=== PATIENT | female | born 1980 | race Caucasian/White ===

== ENCOUNTER → 2016-11-12 | Outpatient (CLI) | payer BC ==
[~2016-11-12] MED LIST: ANTIBIOTIC PO; ASPI-1159 PO; CHOL400T15 PO; CO-Q 10 PO; LABE100T PO; METF10002 PO; PREN-88 PO; PROG200C7 VG
[2016-11-12 06:29] LABS: BASOPHILS % 0.8 % (0.0-2.0); EOSINOPHILS % 1.7 % (0.0-5.0); HEMATOCRIT. 37.9 % (36.0-48.0); HEMOGLOBIN. 12.9 g/dL (12.0-16.0); LYMPHOCYTES % 25.5 % (20.0-50.0); MEAN CORPUSCULAR HEMOGLOBIN 29.4 pg (28.0-32.0); MEAN CORPUSCULAR VOLUME 86.4 fL (81.0-99.0); MEAN PLATELET VOLUME 7.9 fl (7.4-10.4); MONOCYTES % 5.4 % (2.0-8.0); NEUTROPHILS % 66.6 % (40.0-76.0); PLATELET 302 x1000/uL (130-400); RED BLOOD CELL COUNT 4.38 mill/uL (4.2-5.4); RED CELL DISTRIBUTION WIDTH 13.7 % (11.6-14.6)
[2016-11-12 07:03] LABS: CARBON DIOXIDE 22 mEq/L (21-32); CHLORIDE 106 mEq/L (98-107)
[2016-11-12 07:28] LABS: VITAMIN B12 SERUM 433 pg/mL (211-911)
== END | disposition home or self-care (01) ==
LOC: LAB 06:09
PROVIDERS: ATTEND Internal Medicine Geriatric Medicine
DX: I10 Essential (primary) hypertension (principal); E11.65 Type 2 diabetes mellitus with hyperglycemia
CPT/HCPCS: 36415; 80053; 82607; 83036; 84443; 85025

== ENCOUNTER → 2016-12-17 | Outpatient (CLI) | payer BC | END | disposition home or self-care (01) | LOC: LAB 15:25 | PROVIDERS: ATTEND Internal Medicine Geriatric Medicine | DX: Z32.00 Encounter for pregnancy test, result unknown (principal) | CPT/HCPCS: 36415; 84702 ==

== ENCOUNTER → 2017-01-06 | Outpatient (CLI) | payer BC ==
[2017-01-06 07:27] LABS: GLUCOSE URINE NEGATIVE (NEGATIVE); KETONES URINE NEGATIVE (NEGATIVE); LEUKOCYTE ESTERASE URINE NEGATIVE (NEGATIVE); NITRITE URINE NEGATIVE (NEGATIVE); OCCULT BLOOD URINE NEGATIVE (NEGATIVE); PROTEIN URINE NEGATIVE (NEGATIVE); SPECIFIC GRAVITY URINE 1.028 (1.005-1.030); UROBILINOGEN URINE 0.2 E.U./dL (0.2-1.0)
[2017-01-06 07:28] LABS: BASOPHILS % 0.6 % (0.0-2.0); EOSINOPHILS % 1.3 % (0.0-5.0); HEMATOCRIT. 37.9 % (36.0-48.0); HEMOGLOBIN. 12.9 g/dL (12.0-16.0); LYMPHOCYTES % 21.8 % (20.0-50.0); MEAN CORPUSCULAR HEMOGLOBIN 30.4 pg (28.0-32.0); MEAN CORPUSCULAR VOLUME 89.1 fL (81.0-99.0); MEAN PLATELET VOLUME 7.9 fl (7.4-10.4); MONOCYTES % 4.8 % (2.0-8.0); NEUTROPHILS % 71.5 % (40.0-76.0); PLATELET 316 x1000/uL (130-400); RED BLOOD CELL COUNT 4.26 mill/uL (4.2-5.4); RED CELL DISTRIBUTION WIDTH 13.2 % (11.6-14.6)
[2017-01-06 07:30] LABS: CLARITY URINE CLEAR (CLEAR); COLOR URINE DARK YELLOW (YELLOW)
[2017-01-06 08:18] LABS: T4 FREE 0.98 ng/dL (0.76-1.46)
[2017-01-06 11:44] LABS: HEPATITIS B SURFACE ANTIGEN NEGATIVE; RUBELLA IGG 19.7 IU/mL (4.99-10)
[2017-01-08 13:11] LABS: HGB A 97.3 % (94.0-98.0); HGB A2 2.7 % (0.7-3.1); HGB SOLUBILITY Negative (Negative)
[2017-01-09 17:12] LABS: 25-HYDROXY VITAMIN D3 38 ng/mL (.)
== END | disposition home or self-care (01) ==
LOC: LAB 06:48
PROVIDERS: ATTEND Obstetrics & Gynecology Obstetrics
DX: O09.529 Supervision of elderly multigravida, unspecified trimester (principal); Z3A.00 Weeks of gestation of pregnancy not specified
CPT/HCPCS: 36415; 81003; 82306; 82947; 83021; 83036; 84439; 84443; 85025; 85660; 86592; 86762; 86850; 86900; 87086; 87186; 87340

== ENCOUNTER 2017-01-15 15:31 | Emergency (ER) | payer BC ==
[~2017-01-15] VITALS: Ht 154.9 cm; Wt 88.0 kg
[2017-01-15 17:39] LABS: CHLORIDE 105 mEq/L (98-107)
[2017-01-15 17:43] LABS: CARBON DIOXIDE 22 mEq/L (21-32)
[2017-01-15 17:56] LABS: BASOPHILS % 0.6 % (0.0-2.0); EOSINOPHILS % 1.2 % (0.0-5.0); HEMATOCRIT. 37.3 % (36.0-48.0); HEMOGLOBIN. 12.4 g/dL (12.0-16.0); LYMPHOCYTES % 24.4 % (20.0-50.0); MEAN CORPUSCULAR HEMOGLOBIN 29.6 pg (28.0-32.0); MEAN CORPUSCULAR VOLUME 88.7 fL (81.0-99.0); MEAN PLATELET VOLUME 8.2 fl (7.4-10.4); MONOCYTES % 6.5 % (2.0-8.0); NEUTROPHILS % 67.3 % (40.0-76.0); PLATELET 331 x1000/uL (130-400); RED BLOOD CELL COUNT 4.21 mill/uL (4.2-5.4); RED CELL DISTRIBUTION WIDTH 13.5 % (11.6-14.6)
[2017-01-15 18:03] LABS: B-HCG QUANTITATIVE 83756 mIU/mL (<3)
[2017-01-15 19:30] VITALS: BP 132/78
== END 2017-01-15 20:30 | disposition home or self-care (01) ==
LOC: ER 16:21
DX: O26.891 Other specified pregnancy related conditions, first trimester (principal); O16.2 Unspecified maternal hypertension, second trimester; O24.912 Unspecified diabetes mellitus in pregnancy, second trimester; N89.8 Other specified noninflammatory disorders of vagina; Z88.0 Allergy status to penicillin; Z79.82 Long term (current) use of aspirin; Z3A.08 8 weeks gestation of pregnancy
CPT/HCPCS: 36415; 76810; 76830; 80053; 84702; 85025; 86850; 86900; 99285

== ENCOUNTER → 2017-02-03 | Outpatient (CLI) | payer BC | END | disposition home or self-care (01) | LOC: LAB 13:32 | PROVIDERS: ATTEND Obstetrics & Gynecology Obstetrics | DX: Z34.81 Encounter for supervision of other normal pregnancy, first trimester (principal) | CPT/HCPCS: 36415 ==

== ENCOUNTER → 2017-02-14 | Outpatient (CLI) | payer BC | END | disposition home or self-care (01) | LOC: LAB 09:44 | PROVIDERS: ATTEND Obstetrics & Gynecology Obstetrics | DX: Z34.81 Encounter for supervision of other normal pregnancy, first trimester (principal) | CPT/HCPCS: 36415 ==

== ENCOUNTER 2017-02-26 05:37 | Inpatient (IN) | payer BC ==
[~2017-02-26] VITALS: Ht 154.9 cm; Wt 91.2 kg
[~2017-02-26 05:37] MED LIST changes: -ANTIBIOTIC PO; +CHOL20009 PO; -CHOL400T15 PO; +INSLIS SUBCUT; -METF10002 PO; +NPH,100V SQ
[2017-02-26] MEDS ORDERED: SODIUM CHLORIDE 0.9% 1,000 ML IV SCH (06:40)
[2017-02-26 06:55] LABS: BASOPHILS % 0.3 % (0.0-2.0); EOSINOPHILS % 0.9 % (0.0-5.0); HEMOGLOBIN. 12.6 g/dL (12.0-16.0); LYMPHOCYTES % 13.2 % (20.0-50.0); MEAN CORPUSCULAR HEMOGLOBIN 30.6 pg (28.0-32.0); MEAN CORPUSCULAR VOLUME 89.6 fL (81.0-99.0); MONOCYTES % 4.8 % (2.0-8.0); NEUTROPHILS % 80.8 % (40.0-76.0); PLATELET 251 x1000/uL (130-400); RED BLOOD CELL COUNT 4.14 mill/uL (4.2-5.4); RED CELL DISTRIBUTION WIDTH 13.5 % (11.6-14.6)
[2017-02-26] MEDS ORDERED: CITRIC ACID/SODIUM CITRATE SOLN 30ML UDC PO STA (06:55)
[2017-02-26 07:10] LABS: PARTIAL THROMBOPLASTIN TIME 25.6 sec (23.4-31.0); PROTHROMBIN TIME 10.4 sec (9.4-11.6)
[2017-02-26 07:27] LABS: CLARITY URINE CLEAR (CLEAR); COLOR URINE DARK YELLOW (YELLOW); KETONES URINE 1+ (NEGATIVE); LEUKOCYTE ESTERASE URINE 1+ (NEGATIVE); NITRITE URINE NEGATIVE (NEGATIVE); OCCULT BLOOD URINE NEGATIVE (NEGATIVE); PROTEIN URINE NEGATIVE (NEGATIVE); SPECIFIC GRAVITY URINE 1.032 (1.005-1.030); UROBILINOGEN URINE 0.2 E.U./dL (0.2-1.0)
[2017-02-26] MEDS ORDERED: ACETAMINOPHEN 325MG TABLET PO PRN (07:30)
[2017-02-26] MEDS ORDERED: ONDANSETRON HCL 4MG/2ML VIAL IV PRN (07:30)
[2017-02-26 07:50] LABS: CARBON DIOXIDE 21 mEq/L (21-32); CHLORIDE 106 mEq/L (98-107)
[2017-02-26] MEDS ORDERED: METRONIDAZOLE 0.75% TOP ONE (09:15)
[2017-02-26] MEDS ORDERED: HYDROCODONE/ACETAMINOPHEN 5/325MG TABLET PO PRN ×2 (09:30)
[2017-02-26 16:00] VITALS: BP 131/65
[2017-02-26] MEDS: PRENATAL VIT/FE FUMARATE/FA TABLET PO SCH (16:11)
[2017-02-26] MEDS: ASPIRIN 81MG EC TABLET PO SCH (16:11)
[2017-02-26] MEDS: CHOLECALCIFEROL (D3) 1000 UNIT TABLET PO SCH (16:11)
[2017-02-26] MEDS ORDERED: INSULIN GLARGINE UD 100 UNITS/ML SYR SUBCUT SCH (18:00)
[2017-02-26 20:00] VITALS: BP 112/69
[2017-02-26] MEDS: LABETALOL HCL 100MG TABLET PO SCH (21:31)
[2017-02-27] VITALS: BP 110/62
[2017-02-27 04:00] VITALS: BP 106/52
[2017-02-27 07:40] VITALS: BP 110/65
[2017-02-27] MEDS ORDERED: INSULIN GLARGINE UD 100 UNITS/ML SYR SUBCUT SCH (09:00)
[2017-02-27] MEDS: LABETALOL HCL 100MG TABLET PO SCH (09:05)
[2017-02-27] MEDS: CHOLECALCIFEROL (D3) 1000 UNIT TABLET PO SCH (09:05)
[2017-02-27] MEDS: PRENATAL VIT/FE FUMARATE/FA TABLET PO SCH (09:05)
[2017-02-27] MEDS: ASPIRIN 81MG EC TABLET PO SCH (09:05)
[2017-02-27 10:16] VITALS: BP 110/65
== END 2017-02-27 10:45 | disposition home or self-care (01) | DRG 782 ==
LOC: OR 05:37 → 8WST 05:38
PROVIDERS: ADMIT Obstetrics & Gynecology Obstetrics; ATTEND Obstetrics & Gynecology Obstetrics
PROC: 0UV Female Reproductive System, Restriction (ICD-10-PCS; principal; 2017-02-26 07:30)
DX: O34.32 Maternal care for cervical incompetence, second trimester (principal); O09.522 Supervision of elderly multigravida, second trimester; O30.032 Twin pregnancy, monochorionic/diamniotic, second trimester; Z3A.14 14 weeks gestation of pregnancy; Z82.49 Family history of ischemic heart disease and other diseases of the circulatory system; Z83.3 Family history of diabetes mellitus; Z88.0 Allergy status to penicillin
CPT/HCPCS: 36415; 80048; 81001; 82962; 85025; 85610; 85730; 86850; 86900; 93005; J1815; J7030

== ENCOUNTER → 2017-03-18 | Outpatient (CLI) | payer BC ==
[~2017-03-18] MED LIST changes: -PROG200C7 VG
== END | disposition home or self-care (01) ==
LOC: LAB 10:40
PROVIDERS: ATTEND Obstetrics & Gynecology Obstetrics
DX: O09.522 Supervision of elderly multigravida, second trimester (principal); O30.002 Twin pregnancy, unspecified number of placenta and unspecified number of amniotic sacs, second trimester; O24.912 Unspecified diabetes mellitus in pregnancy, second trimester; O16.2 Unspecified maternal hypertension, second trimester; Z3A.17 17 weeks gestation of pregnancy
CPT/HCPCS: 36415

== ENCOUNTER 2017-06-04 12:37 | Inpatient (IN) | payer BC ==
[~2017-06-04] VITALS: Ht 157.5 cm; Wt 100.7 kg
[2017-06-04] MEDS ORDERED: LACTATED RINGERS 1,000 ML IV SCH (12:49)
[2017-06-04] MEDS: LACTATED RINGERS 1,000 ML IV SCH ×2 (14:10→14:48)
[2017-06-04 14:25] LABS: CLARITY URINE CLEAR (CLEAR); COLOR URINE YELLOW (YELLOW); KETONES URINE TRACE (NEGATIVE); LEUKOCYTE ESTERASE URINE TRACE (NEGATIVE); NITRITE URINE NEGATIVE (NEGATIVE); OCCULT BLOOD URINE NEGATIVE (NEGATIVE); PH URINE 6.5 (4.5-8.0); PROTEIN URINE 1+ (NEGATIVE); SPECIFIC GRAVITY URINE 1.023 (1.005-1.030)
[2017-06-04 14:31] LABS: PARTIAL THROMBOPLASTIN TIME 25.2 sec (23.4-31.0); PROTHROMBIN TIME 10.3 sec (9.4-11.6)
[2017-06-04] MEDS: BETAMETHASONE ACET/BETAMET 30 MG/5 ML VIAL IM SCH (14:48)
[2017-06-04 14:54] LABS: *AMPHETAMINES SCREEN URINE NEGATIVE (NEGATIVE); *BARBITURATES SCREEN URINE NEGATIVE (NEGATIVE); *BENZODIAZEPINES SCREEN URINE NEGATIVE (NEGATIVE); *COCAINE SCREEN URINE NEGATIVE (NEGATIVE)
[2017-06-04 14:55] LABS: CANNABINOID URINE SCREEN NEGATIVE (NEGATIVE); METHADONE URINE SCREEN NEGATIVE (NEGATIVE); OPIATES URINE SCREEN NEGATIVE (NEGATIVE); PHENCYCLIDINE URINE SCREEN NEGATIVE (NEGATIVE)
[2017-06-04 15:06] LABS: RUBELLA IGG 31.9 IU/mL (4.99-10)
[2017-06-04 15:07] LABS: HEPATITIS B SURFACE ANTIGEN NEGATIVE
[2017-06-04 15:20] LABS: BASOPHILS % 0.2 % (0.0-2.0); EOSINOPHILS % 0.9 % (0.0-5.0); HEMATOCRIT. 33.5 % (36.0-48.0); HEMOGLOBIN. 11.6 g/dL (12.0-16.0); LYMPHOCYTES % 14.3 % (20.0-50.0); MEAN CORPUSCULAR HEMOGLOBIN 31.3 pg (28.0-32.0); MEAN CORPUSCULAR VOLUME 90.8 fL (81.0-99.0); MEAN PLATELET VOLUME 7.9 fl (7.4-10.4); MONOCYTES % 7.7 % (2.0-8.0); NEUTROPHILS % 76.9 % (40.0-76.0); PLATELET 246 x1000/uL (130-400); RED CELL DISTRIBUTION WIDTH 14.4 % (11.6-14.6)
[2017-06-04] MEDS ORDERED: CLINDAMYCIN 900 MG in DEXTROSE 5% WATER 50 ML IV SCH (19:00)
[2017-06-04] MEDS: MAGNESIUM 20 G PREMIX (L & D) 500 ML IV SCH (19:15)
[2017-06-04] MEDS: INSULIN LISPRO 100 UNITS/ML SUBCUT SCH (20:14)
[2017-06-04] MEDS: CLINDAMYCIN 900 MG in SODIUM CHLORIDE 0.9% 50 ML IV SCH (20:16)
[2017-06-04] MEDS ORDERED: AZITHROMYCIN IV NR (21:00)
[2017-06-04] MEDS ORDERED: LACTATED RINGERS IV NR (21:00)
[2017-06-04] MEDS: LABETALOL HCL 100MG TABLET PO SCH (21:21)
[2017-06-04] MEDS ORDERED: INSULIN REGULAR (HUMULIN R) 300UNITS/3ML SUBCUT SCH (22:45)
[2017-06-04] MEDS ORDERED: INSULIN LISPRO 100 UNITS/ML SUBCUT NR (22:57)
[2017-06-04] MEDS: INSULIN NPH (HUMULIN-N) 100 UNITS/ML 3ML VIAL SUBCUT SCH (23:05)
[2017-06-04] MEDS: GENTAMICIN SULFATE 140 MG in SODIUM CHLORIDE 0.9% 100 ML IV SCH (23:09)
[2017-06-05] MEDS: MAGNESIUM 20 G PREMIX (L & D) 500 ML IV SCH (02:32)
[2017-06-05] MEDS: CLINDAMYCIN 900 MG in SODIUM CHLORIDE 0.9% 50 ML IV SCH ×3 (04:15→21:20)
[2017-06-05] MEDS ORDERED: INSULIN LISPRO 100 UNITS/ML SUBCUT SCH (07:45)
[2017-06-05] MEDS: INSULIN NPH (HUMULIN-N) 100 UNITS/ML 3ML VIAL SUBCUT SCH ×2 (07:49→22:30)
[2017-06-05] MEDS: INSULIN LISPRO 100 UNITS/ML SUBCUT SCH ×2 (07:58→17:44)
[2017-06-05 08:02] LABS: BASOPHILS % 0.2 % (0.0-2.0); EOSINOPHILS % 0.1 % (0.0-5.0); HEMATOCRIT. 33.3 % (36.0-48.0); HEMOGLOBIN. 11.5 g/dL (12.0-16.0); LYMPHOCYTES % 10.9 % (20.0-50.0); MEAN CORPUSCULAR HEMOGLOBIN 31.6 pg (28.0-32.0); MEAN CORPUSCULAR VOLUME 91.1 fL (81.0-99.0); MEAN PLATELET VOLUME 7.8 fl (7.4-10.4); NEUTROPHILS % 82.8 % (40.0-76.0); PLATELET 240 x1000/uL (130-400); RED BLOOD CELL COUNT 3.65 mill/uL (4.2-5.4); RED CELL DISTRIBUTION WIDTH 14.4 % (11.6-14.6)
[2017-06-05 08:16] LABS: CHLORIDE 106 mEq/L (98-107)
[2017-06-05] MEDS ORDERED: PRENATAL VIT/FE FUMARATE/FA TABLET PO SCH (09:00)
[2017-06-05] MEDS: LABETALOL HCL 100MG TABLET PO SCH ×2 (09:00→22:39)
[2017-06-05] MEDS ORDERED: INSULIN LISPRO 100 UNITS/ML SUBCUT NR ×2 (11:45→21:15)
[2017-06-05] MEDS: LACTATED RINGERS 1,000 ML IV SCH (12:00)
[2017-06-05] MEDS: GENTAMICIN SULFATE 140 MG in SODIUM CHLORIDE 0.9% 100 ML IV SCH (14:39)
[2017-06-05] MEDS: BETAMETHASONE ACET/BETAMET 30 MG/5 ML VIAL IM SCH (15:30)
[2017-06-05] MEDS ORDERED: INSULIN LISPRO 100 UNITS/ML SUBCUT ONE (21:00)
[2017-06-05] MEDS ORDERED: INSULIN REGULAR (HUMULIN R) 300UNITS/3ML SUBCUT NR (22:30)
[2017-06-06] MEDS ORDERED: GENTAMICIN SULFATE 140 MG in SODIUM CHLORIDE 0.9% 100 ML IV SCH (03:00)
[2017-06-06] MEDS: CLINDAMYCIN 900 MG in SODIUM CHLORIDE 0.9% 50 ML IV SCH ×2 (05:47→12:35)
[2017-06-06] MEDS ORDERED: INSULIN REGULAR (HUMULIN R) 300UNITS/3ML SUBCUT ONE (07:45)
[2017-06-06] MEDS: INSULIN LISPRO 100 UNITS/ML SUBCUT SCH ×2 (08:03→18:27)
[2017-06-06] MEDS: INSULIN NPH (HUMULIN-N) 100 UNITS/ML 3ML VIAL SUBCUT SCH ×2 (08:11→22:24)
[2017-06-06 13:37] LABS: BASOPHILS % 0.1 % (0.0-2.0); EOSINOPHILS % 0.1 % (0.0-5.0); HEMATOCRIT. 30.6 % (36.0-48.0); HEMOGLOBIN. 10.4 g/dL (12.0-16.0); MEAN CORPUSCULAR HEMOGLOBIN 30.9 pg (28.0-32.0); MEAN CORPUSCULAR VOLUME 91.3 fL (81.0-99.0); MEAN PLATELET VOLUME 7.8 fl (7.4-10.4); MONOCYTES % 9.7 % (2.0-8.0); NEUTROPHILS % 75.1 % (40.0-76.0); PLATELET 220 x1000/uL (130-400); RED BLOOD CELL COUNT 3.35 mill/uL (4.2-5.4); RED CELL DISTRIBUTION WIDTH 14.3 % (11.6-14.6)
[2017-06-06] MEDS ORDERED: DEXTROSE 50% WATER 50ML SYRINGE IV PRN (18:30)
[2017-06-06] MEDS: LABETALOL HCL 100MG TABLET PO SCH (21:11)
[2017-06-06] MEDS: CLINDAMYCIN HCL 150MG CAPSULE PO SCH (21:12)
[2017-06-06] MEDS ORDERED: LIDOCAINE HCL 2% JELLY 5ML TOP NR (21:15)
[2017-06-06] MEDS: NITROFURANTOIN 100MG M/M CAPSULE PO SCH (22:14)
[2017-06-06] MEDS: LACTATED RINGERS 1,000 ML IV SCH (23:48)
[2017-06-07 00:22] LABS: CLARITY URINE CLEAR (CLEAR); COLOR URINE YELLOW (YELLOW); KETONES URINE NEGATIVE (NEGATIVE); LEUKOCYTE ESTERASE URINE NEGATIVE (NEGATIVE); NITRITE URINE NEGATIVE (NEGATIVE); OCCULT BLOOD URINE 2+ (NEGATIVE); PROTEIN URINE NEGATIVE (NEGATIVE); SPECIFIC GRAVITY URINE 1.015 (1.005-1.030); UROBILINOGEN URINE 0.2 E.U./dL (0.2-1.0)
[2017-06-07] MEDS: CLINDAMYCIN HCL 150MG CAPSULE PO SCH (05:12)
[2017-06-07] MEDS: BLOOD SUGAR DIAGNOSTIC STRIP TEST SCH ×4 (06:30→19:00)
[2017-06-07] MEDS: LACTATED RINGERS 1,000 ML IV SCH (06:45)
[2017-06-07] MEDS ORDERED: PHENAZOPYRIDINE HCL 100MG TABLET PO SCH (07:10)
[2017-06-07] MEDS ORDERED: CEFAZOLIN SODIUM 1000MG/VIAL ONE (08:03)
[2017-06-07] MEDS ORDERED: OXYTOCIN 10 UNITS/ML 1ML ONE (08:03)
[2017-06-07] MEDS ORDERED: KETOROLAC 60MG/2ML VIAL IM ONE (08:04)
[2017-06-07] MEDS ORDERED: ONDANSETRON HCL 4MG/2ML VIAL ONE (08:04)
[2017-06-07] MEDS ORDERED: MORPHINE SULFATE/PF 1MG/ML 10ML AMP ONE (08:07)
[2017-06-07] MEDS ORDERED: FENTANYL CITRATE/PF 50MCG/ML 2ML VIAL ONE (08:07)
[2017-06-07] MEDS ORDERED: EPHEDRINE SULFATE 50MG/ML VIAL ONE (08:08)
[2017-06-07] MEDS ORDERED: IBUPROFEN 400MG TABLET PO PRN (08:15)
[2017-06-07] MEDS ORDERED: CLINDAMYCIN 900 MG in DEXTROSE 5% WATER 50 ML IV SCH (08:30)
[2017-06-07] MEDS ORDERED: OXYTOCIN 20 UNITS in LACTATED RINGERS 1,000 ML IV SCH (08:30)
[2017-06-07] MEDS ORDERED: NALOXONE HCL 0.4 MG/ML 1ML VIAL IV PRN (11:00)
[2017-06-07] MEDS ORDERED: BUTORPHANOL TARTRATE 2 MG/ML VIAL IV PRN (11:00)
[2017-06-07] MEDS ORDERED: ONDANSETRON HCL 4MG/2ML VIAL IV PRN (11:00)
[2017-06-07] MEDS ORDERED: DIPHENHYDRAMINE 50MG/ML VIAL IM PRN (11:00)
[2017-06-07] MEDS ORDERED: IBUPROFEN 600MG TABLET PO PRN (11:54)
[2017-06-07] MEDS ORDERED: INSULIN NPH (HUMULIN-N) 100 UNITS/ML 3ML VIAL SUBCUT SCH (13:30)
[2017-06-07] MEDS ORDERED: INSULIN LISPRO 100 UNITS/ML SUBCUT SCH (13:30)
[2017-06-07 14:00] VITALS: BP 118/73
[2017-06-07 15:00] VITALS: BP 120/71
[2017-06-07 16:11] VITALS: BP 109/73
[2017-06-07] MEDS ORDERED: LABETALOL HCL 100MG TABLET PO SCH ×2 (17:00→21:00)
[2017-06-07 20:00] VITALS: BP 121/71
[2017-06-07] MEDS: OXYTOCIN 20 UNITS in LACTATED RINGERS 1,000 ML IV SCH (20:03)
[2017-06-07] MEDS: INSULIN LISPRO 100 UNITS/ML SUBCUT SCH (20:40)
[2017-06-07] MEDS: KETOROLAC 30MG/ML VIAL IV PRN (20:49)
[2017-06-07] MEDS: DOCUSATE SODIUM 100MG CAPSULE PO SCH (20:49)
[2017-06-07] MEDS: LABETALOL HCL 100MG TABLET PO SCH (20:54)
[2017-06-07] MEDS: NITROFURANTOIN 100MG M/M CAPSULE PO SCH (23:51)
[2017-06-08] VITALS: BP 110/70
[2017-06-08 04:30] VITALS: BP 115/69
[2017-06-08] MEDS: OXYTOCIN 20 UNITS in LACTATED RINGERS 1,000 ML IV SCH (04:35)
[2017-06-08] MEDS: KETOROLAC 30MG/ML VIAL IV PRN (05:28)
[2017-06-08 06:28] LABS: BASOPHILS % 0.1 % (0.0-2.0); EOSINOPHILS % 0.3 % (0.0-5.0); HEMATOCRIT. 31.4 % (36.0-48.0); HEMOGLOBIN. 10.7 g/dL (12.0-16.0); LYMPHOCYTES % 9.4 % (20.0-50.0); MEAN CORPUSCULAR VOLUME 91.1 fL (81.0-99.0); MONOCYTES % 9.4 % (2.0-8.0); NEUTROPHILS % 80.8 % (40.0-76.0); PLATELET 235 x1000/uL (130-400); RED BLOOD CELL COUNT 3.45 mill/uL (4.2-5.4); RED CELL DISTRIBUTION WIDTH 14.1 % (11.6-14.6)
[2017-06-08] MEDS: BLOOD SUGAR DIAGNOSTIC STRIP TEST SCH ×4 (06:30→19:00)
[2017-06-08 08:30] VITALS: BP 109/70
[2017-06-08] MEDS: LABETALOL HCL 100MG TABLET PO SCH ×2 (08:44→21:09)
[2017-06-08] MEDS: PRENATAL VIT/FE FUMARATE/FA TABLET PO SCH (08:54)
[2017-06-08] MEDS ORDERED: INSULIN NPH (HUMULIN-N) 100 UNITS/ML 3ML VIAL SUBCUT SCH (09:00)
[2017-06-08] MEDS ORDERED: INSULIN LISPRO 100 UNITS/ML SUBCUT SCH (09:00)
[2017-06-08] MEDS ORDERED: ASPIRIN 81MG EC TABLET PO SCH (09:00)
[2017-06-08 11:55] LABS: BASOPHILS % 0.1 % (0.0-2.0); EOSINOPHILS % 0.2 % (0.0-5.0); HEMATOCRIT. 30.1 % (36.0-48.0); HEMOGLOBIN. 10.2 g/dL (12.0-16.0); LYMPHOCYTES % 8.3 % (20.0-50.0); MEAN CORPUSCULAR HEMOGLOBIN 30.7 pg (28.0-32.0); MEAN CORPUSCULAR VOLUME 90.9 fL (81.0-99.0); MEAN PLATELET VOLUME 8.1 fl (7.4-10.4); MONOCYTES % 9.9 % (2.0-8.0); NEUTROPHILS % 81.5 % (40.0-76.0); PLATELET 235 x1000/uL (130-400); RED BLOOD CELL COUNT 3.32 mill/uL (4.2-5.4)
[2017-06-08] MEDS: ACETAMINOPHEN WITH CODEINE 300/30MG TABLET PO PRN ×2 (15:17→22:04)
[2017-06-08 16:26] VITALS: BP 113/70
[2017-06-08 19:30] VITALS: BP 119/72
[2017-06-08] MEDS: DOCUSATE SODIUM 100MG CAPSULE PO SCH (21:07)
[2017-06-08] MEDS: INSULIN LISPRO 100 UNITS/ML SUBCUT SCH (22:11)
[2017-06-08 23:40] VITALS: BP 108/54
[2017-06-09 03:40] VITALS: BP 113/71
[2017-06-09] MEDS: ACETAMINOPHEN WITH CODEINE 300/30MG TABLET PO PRN ×4 (05:24→22:26)
[2017-06-09] MEDS: BLOOD SUGAR DIAGNOSTIC STRIP TEST SCH ×3 (06:30→15:20)
[2017-06-09 08:00] VITALS: BP 140/83
[2017-06-09] MEDS: LABETALOL HCL 100MG TABLET PO SCH ×3 (09:00→21:03)
[2017-06-09] MEDS: PRENATAL VIT/FE FUMARATE/FA TABLET PO SCH (09:30)
[2017-06-09 14:26] VITALS: BP 101/68
[2017-06-09 20:00] VITALS: BP 122/79
[2017-06-09] MEDS: DOCUSATE SODIUM 100MG CAPSULE PO SCH (21:01)
[2017-06-09 23:50] VITALS: BP 117/71
[2017-06-10 05:28] VITALS: BP 119/70
[2017-06-10 07:35] VITALS: BP 135/92
[2017-06-10] MEDS ORDERED: POLYETHYLENE GLYCOL 3350 (17GM) 1 DOSE PACK PO SCH (09:00)
[2017-06-10] MEDS: PRENATAL VIT/FE FUMARATE/FA TABLET PO SCH (09:31)
[2017-06-10] MEDS: LABETALOL HCL 100MG TABLET PO SCH (09:31)
[2017-06-10 10:10] LABS: BASOPHILS % 0.3 % (0.0-2.0); EOSINOPHILS % 2.1 % (0.0-5.0); HEMOGLOBIN. 11.8 g/dL (12.0-16.0); LYMPHOCYTES % 13.3 % (20.0-50.0); MEAN CORPUSCULAR HEMOGLOBIN 31.5 pg (28.0-32.0); MEAN CORPUSCULAR VOLUME 90.6 fL (81.0-99.0); MEAN PLATELET VOLUME 8.1 fl (7.4-10.4); MONOCYTES % 6.5 % (2.0-8.0); NEUTROPHILS % 77.8 % (40.0-76.0); PLATELET 323 x1000/uL (130-400); RED BLOOD CELL COUNT 3.75 mill/uL (4.2-5.4); RED CELL DISTRIBUTION WIDTH 14.2 % (11.6-14.6)
[2017-06-10 10:15] LABS: CLARITY URINE CLEAR (CLEAR); COLOR URINE YELLOW (YELLOW); KETONES URINE NEGATIVE (NEGATIVE); LEUKOCYTE ESTERASE URINE 2+ (NEGATIVE); NITRITE URINE NEGATIVE (NEGATIVE); OCCULT BLOOD URINE 3+ (NEGATIVE); PH URINE 6.5 (4.5-8.0); PROTEIN URINE TRACE (NEGATIVE); SPECIFIC GRAVITY URINE 1.011 (1.005-1.030); UROBILINOGEN URINE 0.2 E.U./dL (0.2-1.0)
[2017-06-10] MEDS ORDERED: TETANUS, DIPHTHERIA, PERTUSSIS VAC/PF 0.5ML (>7YR OLD) IM ONE (12:00)
== END 2017-06-10 15:00 | disposition home or self-care (01) | DRG 765 ==
LOC: OBSVTOIN 12:37 → INTOOBSV 12:37 → L&D 12:37 → 7EST PP/OB 06-07 15:03
PROVIDERS: ADMIT Obstetrics & Gynecology Obstetrics; ATTEND Obstetrics & Gynecology Obstetrics
PROC: 0UCC0ZZ Extirpation of Matter from Cervix, Open Approach (ICD-10-PCS; 2017-06-07)
PROC: 10D00Z1 Extraction of Products of Conception, Low, Open Approach (ICD-10-PCS; principal; 2017-06-07 09:55)
DX: O42.913 Preterm premature rupture of membranes, unspecified as to length of time between rupture and onset of labor, third trimester (principal); O24.12 Pre-existing type 2 diabetes mellitus, in childbirth; O34.33 Maternal care for cervical incompetence, third trimester; Z37.2 Twins, both liveborn; O99.12 Other diseases of the blood and blood-forming organs and certain disorders involving the immune mechanism complicating childbirth; O10.92 Unspecified pre-existing hypertension complicating childbirth; E44.1 Mild protein-calorie malnutrition; Z68.41 Body mass index [BMI] 40.0-44.9, adult; E11.9 Type 2 diabetes mellitus without complications; O30.033 Twin pregnancy, monochorionic/diamniotic, third trimester; O99.344 Other mental disorders complicating childbirth; F41.9 Anxiety disorder, unspecified; E28.2 Polycystic ovarian syndrome; O12.04 Gestational edema, complicating childbirth; Z79.4 Long term (current) use of insulin; I10 Essential (primary) hypertension; O25.2 Malnutrition in childbirth; O99.02 Anemia complicating childbirth; D64.9 Anemia, unspecified; Z79.84 Long term (current) use of oral hypoglycemic drugs; Z83.3 Family history of diabetes mellitus; Z88.0 Allergy status to penicillin; O99.62 Diseases of the digestive system complicating childbirth; K59.00 Constipation, unspecified; Z3A.28 28 weeks gestation of pregnancy; O99.214 Obesity complicating childbirth; E66.09 Other obesity due to excess calories; Z23 Encounter for immunization
CPT/HCPCS: 36415; 76805; 76815; 76818; 80053; 80170; 80305; 81003; 82565; 82962; 83036; 83735; 85025; 85610; 85730; 86592; 86703; 86762; 86850; 86900; 87040; 87070; 87086; 87340; 88307; 90715; 93970; C1893; G0378; J0456; J0690; J0702; J1580; J1815; J1885; J2274; J2405; J3010; J3475; J3490; J7050; J7060; J7120; A4315

== ENCOUNTER → 2017-06-17 | Outpatient (CLI) | payer BC ==
[~2017-06-17] MED LIST changes: -ASPI-1159 PO; -CHOL20009 PO; -CO-Q 10 PO; -INSLIS SUBCUT; -NPH,100V SQ; -PREN-88 PO
[2017-06-17 14:46] LABS: BASOPHILS % 0.8 % (0.0-2.0); EOSINOPHILS % 2.1 % (0.0-5.0); HEMOGLOBIN. 12.5 g/dL (12.0-16.0); LYMPHOCYTES % 30.1 % (20.0-50.0); MEAN CORPUSCULAR HEMOGLOBIN 31.2 pg (28.0-32.0); MEAN CORPUSCULAR VOLUME 89.7 fL (81.0-99.0); MEAN PLATELET VOLUME 7.1 fl (7.4-10.4); PLATELET 431 x1000/uL (130-400); RED BLOOD CELL COUNT 4.01 mill/uL (4.2-5.4); RED CELL DISTRIBUTION WIDTH 13.8 % (11.6-14.6)
[2017-06-17 14:59] LABS: CHLORIDE 107 mEq/L (98-107)
== END | disposition home or self-care (01) ==
LOC: LAB 14:13
PROVIDERS: ATTEND Internal Medicine Geriatric Medicine
DX: E11.65 Type 2 diabetes mellitus with hyperglycemia (principal); I10 Essential (primary) hypertension; Z79.4 Long term (current) use of insulin
CPT/HCPCS: 36415; 80053; 85025

== ENCOUNTER 2018-06-17 06:02 | Day surgery (SDC) | payer BC ==
[~2018-06-17] VITALS: Ht 154.9 cm; Wt 89.8 kg
[~2018-06-17 06:02] MED LIST changes: -LABE100T PO; +LABE100T5 PO
[2018-06-17 06:53] LABS: BASOPHILS % 0.6 % (0.0-2.0); EOSINOPHILS % 1.9 % (0.0-5.0); HEMATOCRIT. 42.5 % (36.0-48.0); HEMOGLOBIN. 14.3 g/dL (12.0-16.0); LYMPHOCYTES % 23.1 % (20.0-50.0); MEAN CORPUSCULAR VOLUME 89.2 fL (81.0-99.0); MEAN PLATELET VOLUME 8.6 fl (7.4-10.4); MONOCYTES % 4.6 % (2.0-8.0); NEUTROPHILS % 69.8 % (40.0-76.0); PLATELET 296 x1000/uL (130-400); RED BLOOD CELL COUNT 4.76 mill/uL (4.2-5.4); RED CELL DISTRIBUTION WIDTH 13.2 % (11.6-14.6)
[2018-06-17 06:55] LABS: CLARITY URINE TURBID (CLEAR); KETONES URINE 2+ (NEGATIVE); LEUKOCYTE ESTERASE URINE 2+ (NEGATIVE); NITRITE URINE NEGATIVE (NEGATIVE); OCCULT BLOOD URINE 3+ (NEGATIVE); PH URINE 5.5 (4.5-8.0); PROTEIN URINE 1+ (NEGATIVE); SPECIFIC GRAVITY URINE 1.043 (1.005-1.030)
[2018-06-17 06:57] LABS: COLOR URINE BLOODY (YELLOW); UCG SCREEN NEGATIVE
[2018-06-17] MEDS ORDERED: INSULIN REGULAR (HUMULIN R) 300UNITS/3ML ONE (06:57)
[2018-06-17] MEDS ORDERED: INSULIN REGULAR (HUMULIN R) UD 100 UNITS/ML SYR SUBCUT ONE (07:00)
[2018-06-17 07:06] LABS: PARTIAL THROMBOPLASTIN TIME 26.5 sec (23.4-31.0); PROTHROMBIN TIME 10.6 sec (9.6-11.0)
[2018-06-17] MEDS ORDERED: INSULIN REGULAR (HUMULIN R) 300UNITS/3ML SUBCUT ONE (07:07)
[2018-06-17] MEDS ORDERED: METHYLENE BLUE 50 MG/10 ML AMP IV ONE (07:15)
[2018-06-17] MEDS ORDERED: BUPIVACAINE HCL/EPINEPHRINE 0.5%/0.0005 30ML ONE (07:15)
[2018-06-17] MEDS ORDERED: VASOPRESSIN 20 UNIT/ML 1ML ONE (07:16)
[2018-06-17] MEDS ORDERED: PROPOFOL 200MG/20ML VIAL IV ONE (07:34)
[2018-06-17] MEDS ORDERED: NEOSTIGMINE METHYLSULFATE 1MG/ML 10 ML VIAL ONE (07:34)
[2018-06-17] MEDS ORDERED: FENTANYL CITRATE/PF 50MCG/ML 2ML VIAL ONE ×2 (07:34→08:18)
[2018-06-17] MEDS ORDERED: ROCURONIUM BROMIDE 10MG/ML VIAL 5ML IV ONE (07:34)
[2018-06-17] MEDS ORDERED: MIDAZOLAM HCL 2 MG/2 ML VIAL ONE (07:35)
[2018-06-17] MEDS ORDERED: SUCCINYLCHOLINE CHLORIDE 200MG/10ML IV ONE (07:35)
[2018-06-17] MEDS ORDERED: LIDOCAINE HCL/PF 1% 10 MG/ML 5ML VIAL ONE (07:35)
[2018-06-17] MEDS ORDERED: PHENYLEPHRINE HCL 10 MG/ML 1ML (IV VIAL) IV ONE (07:35)
[2018-06-17] MEDS ORDERED: ONDANSETRON HCL 4MG/2ML INJ ONE (07:35)
[2018-06-17] MEDS ORDERED: EPHEDRINE SULFATE 50MG/ML VIAL ONE (07:35)
[2018-06-17] MEDS ORDERED: SODIUM CHLORIDE 0.9% 10ML VIAL ONE (07:35)
[2018-06-17] MEDS ORDERED: DEXAMETHASONE 4MG/ML 1ML VIAL ONE (07:35)
[2018-06-17] MEDS ORDERED: CEFAZOLIN SODIUM 1000MG/VIAL ONE (07:35)
[2018-06-17] MEDS ORDERED: GLYCOPYRROLATE 0.2 MG/ML 2ML VIAL ONE (07:35)
[2018-06-17] MEDS ORDERED: METOCLOPRAMIDE HCL 10MG/2ML VIAL ONE (07:35)
[2018-06-17] MEDS ORDERED: SODIUM CHLORIDE 0.9% 1,000 ML IV SCH (08:30)
[2018-06-17] MEDS ORDERED: METF-414 PO (08:34)
[2018-06-17] MEDS ORDERED: SKIN ADHESIVE 0.7 GM EA TOP ONE (09:07)
[2018-06-17] MEDS ORDERED: SODIUM CHLORIDE 0.9% 1,000 ML IV ONE (09:23)
[2018-06-17] MEDS ORDERED: MEPERIDINE HCL/PF 25MG/ML CPJ IV PRN ×2 (09:30)
[2018-06-17] MEDS ORDERED: ONDANSETRON HCL 4MG/2ML INJ IV PRN (09:30)
[2018-06-17] MEDS ORDERED: HYDROMORPHONE HCL/PF 2MG/ML CPJ IV PRN (09:30)
[2018-06-17] MEDS ORDERED: MORPHINE SULFATE 4 MG/ML CPJ (NOT FOR IM USE) IV PRN (09:30)
[2018-06-17] MEDS ORDERED: INSULIN REGULAR (HUMULIN R) 300UNITS/3ML SUBCUT NR (10:15)
[2018-06-17 10:59] LABS: CHLORIDE 103 mEq/L (98-107)
== END 2018-06-17 11:45 | disposition home or self-care (01) ==
LOC: OR 06:02
PROVIDERS: ATTEND Obstetrics & Gynecology Obstetrics
DX: Z30.2 Encounter for sterilization (principal); E11.9 Type 2 diabetes mellitus without complications; I10 Essential (primary) hypertension; Z79.84 Long term (current) use of oral hypoglycemic drugs; Z79.899 Other long term (current) drug therapy; Z88.0 Allergy status to penicillin; Z82.49 Family history of ischemic heart disease and other diseases of the circulatory system; Z83.3 Family history of diabetes mellitus; Z82.3 Family history of stroke
CPT/HCPCS: 36415; 58661; 80048; 81003; 81025; 82962; 85025; 85610; 85730; 87077; 87086; 87186; 88302; 93005; C1725; G0168; J0330; J0690; J1100; J1815; J2250; J2370; J2405; J2704; J2710; J2765; J3010; J3490; J0171; Q9968

== ENCOUNTER → 2020-03-15 | Outpatient (CLI) | payer OTHER ==
[~2020-03-15] MED LIST changes: +METF-414 PO
== END | disposition home or self-care (01) ==
LOC: MAMMO 10:44
PROVIDERS: ATTEND Radiology Diagnostic Radiology
DX: Z12.31 Encounter for screening mammogram for malignant neoplasm of breast (principal)
CPT/HCPCS: 77067

== ENCOUNTER → 2024-11-11 | Outpatient (CLI) | payer BC ==
[~2024-11-11] MED LIST changes: -LABE100T5 PO; +LABE100T9 PO
[2024-11-11 12:19] LABS: CLARITY URINE CLOUDY (CLEAR); COLOR URINE YELLOW (YELLOW); GLUCOSE URINE 3+ (NEGATIVE); KETONES URINE 2+ (NEGATIVE); LEUKOCYTE ESTERASE URINE TRACE (NEGATIVE); NITRITE URINE POSITIVE (NEGATIVE); OCCULT BLOOD URINE 3+ (NEGATIVE); PH URINE 5.5 (4.5-8.0); PROTEIN URINE NEGATIVE (NEGATIVE); SPECIFIC GRAVITY URINE 1.030 (1.005-1.030); UROBILINOGEN URINE 0.2 E.U./dL (0.2-1.0)
[2024-11-11 12:28] LABS: BASOPHILS % 1.0 % (0.0-2.0); EOSINOPHILS % 0.7 % (0.0-5.0); HEMATOCRIT. 41.7 % (36.0-48.0); HEMOGLOBIN. 14.2 g/dL (12.0-16.0); LYMPHOCYTES % 27.0 % (20.0-50.0); MEAN PLATELET VOLUME 8.1 fl (7.4-10.4); MONOCYTES % 4.1 % (2.0-8.0); NEUTROPHILS % 67.2 % (40.0-76.0); PLATELET 324 x1000/uL (130-400); RED BLOOD CELL COUNT 4.79 mill/uL (4.2-5.4); RED CELL DISTRIBUTION WIDTH 13.6 % (11.6-14.6)
[2024-11-11 12:32] LABS: BACTERIA URINE 4+; RBC URINE 0-2 /hpf (0-2); SQUAMOUS EPITHELIAL CELL URINE 3+ /lpf (RARE/1+); YEAST URINE NONE SEEN
[2024-11-11 12:49] LABS: CREATININE 0.7 mg/dL (0.6-1.0); TRIGLYCERIDE 136 mg/dL (0-150); UREA NITROGEN BLOOD 11 mg/dL (9-23)
[2024-11-11 12:50] LABS: LDL CHOLESTEROL 109 mg/dL (5-100)
[2024-11-11 12:51] LABS: ASPARTATE AMINOTRANSFERASE 24 IU/L (<34); BILIRUBIN TOTAL 1.5 mg/dL (0.1-1.0); PROTEIN TOTAL 7.2 g/dL (6.0-8.3)
[2024-11-11 13:53] LABS: FOLIC ACID (FOLATE) SERUM > 20.00 ng/mL (>5.38); VITAMIN B12 SERUM 389 pg/mL (211-911)
[2024-11-11 14:26] LABS: HEPATITIS A AB IGM NEGATIVE (Negative); HEPATITIS B CORE AB IGM NEGATIVE (Negative)
[2024-11-11 14:27] LABS: HEPATITIS C AB NON REACTIVE (Neg) (Negative)
[2024-11-13 05:10] LABS: FOLICLE STIMULATING HORMONE 21.5 mIU/mL (.); VITAMIN D 25-OH 12.0 ng/mL (30.0-100.0)
[2024-11-13 14:08] LABS: *CREATININE RANDOM URINE 68.8 mg/dL (Not Estab.); MICROALBUMIN RANDOM URINE 17.7 ug/mL (Not Estab.); MICROALBUMIN/CREATININE RATIO 26.0 mg/g creat (0-29)
== END | disposition home or self-care (01) ==
LOC: LAB 11:20
PROVIDERS: ATTEND Internal Medicine Geriatric Medicine
DX: E11.69 Type 2 diabetes mellitus with other specified complication (principal); Z00.01 Encounter for general adult medical examination with abnormal findings; Z79.899 Other long term (current) drug therapy
CPT/HCPCS: 36415; 80053; 80061; 80074; 81001; 81003; 82043; 82306; 82570; 82607; 82728; 82746; 83001; 83036; 83540; 83550; 84443; 85025; 86592; 86705; 86709; 87077; 87186; 87340